=== PATIENT | male | born 1950 | race Caucasian/White ===

== ENCOUNTER 2020-10-14 17:10 | Emergency (ER) | payer MEDICARE, SELFPAY ==
[2020-10-14 17:44] VITALS: BP 148/72; PULSE 98; RESP 17; TEMP 36.7; O2SAT 96; BMI 41.5
[2020-10-14] MEDS: Tetracaine HCl/PF 0.5% Oph Sol 4 ML DROPS 3 DROP EYE-RIGHT (18:01)
[2020-10-14] MEDS: Fluorescein Sodium STRIP 1 STRIP EYE-RIGHT (18:02)
[2020-10-14] MEDS: Erythromycin Base 0.5% Oph Oin 1 GM TUBE 1 CM EYE-LEFT (19:13)
--- NOTE | 2020-10-14 20:12 | ED.EYEPROB ---
HPI - Eye Problem General Chief complaint: Eye Problems Stated complaint: EYE FOREIGN BODY Time Seen by Provider: 10/14/20 17:56 History of Present Illness HPI Narrative: Patient complains of left eye irritation since last night, does not recall any injury, the eye is watering but there is no yellow discharge, the eye is mildly irritated but no significant pain no photophobia no vision change no vision loss no double vision does not recall any foreign body Symptoms are mild and been present for about 20 hours Related Data Home Medications Medication Instructions Recorded Confirmed ascorbate calcium (vitamin C) 500 500 mg PO BID 09/13/20 09/13/20 mg tablet gabapentin 100 mg capsule 100 mg PO TID 09/13/20 09/13/20 ibuprofen 600 mg tablet 600 mg PO TID 09/13/20 09/13/20 tizanidine 4 mg tablet 4 mg PO TID PRN 09/13/20 09/13/20 vitamin E (dl, acetate) 400 unit 400 unit PO .4 times a week cap 09/13/20 09/13/20 capsule Previous Rx's Medication Instructions Recorded back brace #1 ea 09/13/20 hydrochlorothiazide 25 mg tablet 25 mg PO DAILY 90 Days #90 tab 09/13/20 ibuprofen 800 mg tablet 800 mg PO Q8H PRN 30 Days #90 tab 09/13/20 leg brace #1 ea 09/13/20 tramadol 50 mg tablet 50 mg PO Q4H PRN 30 Days #180 tab 09/18/20 erythromycin 0.5 inch OPHTHALMIC (EYE) TID 3 10/14/20 Days #1 g erythromycin 0.5 inch OPHTHALMIC (EYE) TID 3 10/14/20 Days #1 g Allergies Allergy/AdvReac Type Severity Reaction Status Date / Time Sulfa (Sulfonamide Allergy Severe UNKNOWN, Verified 09/13/20 17:56 Antibiotics) rash [SULFA (SULFONAMIDE ANTIBIOTICS)] naproxen Allergy Unknown stomach Verified 09/13/20 17:56 upset, rash Review of Systems Review of Systems: No fever no chills no headache no dizziness no double vision no photophobia no yellow discharge no foreign body sensation no rash, no contact lenses Does not recall any injury PMFSH Past Medical History Source: nursing notes reviewed Medical History Essential hypertension Lymphedema Obesities, morbid Right elbow pain Right knee pain Surgical History (Updated 09/13/20 @ 10:03 by GADIEL Sotelo) History of arthroscopy of right knee History of cervical discectomy Family History Family History (Updated 09/13/20 @ 10:04 by GADIEL Sotelo) Father Parkinson disease Mother Cancer Sister Breast cancer Brother Prostate cancer Social History Social History Smoking Status: Former smoker Use of substances other than those prescribed or required for medical reasons: No Advance Directives: No Advance Directives Information Provided: Yes Physical Exam Vital Signs: Vital Signs: Last Vital Signs Temp 98.1 F 10/14/20 17:44 Pulse 98 10/14/20 17:44 Resp 17 10/14/20 17:44 BP 148/72 H 10/14/20 17:44 Pulse Ox 96 10/14/20 17:44 Body Mass Index 41.5 Patient is A&O x3 comfortable no acute distress relaxed and cooperative Right eye is normal in appearance Left eye is tearing and with mild conjunctival redness, there is no obvious foreign body when the lid is flipped up With staining there is a horizontal corneal abrasion small with dye uptake, pupils equal round react to light, extraocular motions fully intact There is no redness around the orbit Pharynx is normal in appearance well hydrated Neck is supple Respiratory no respiratory distress Skin no rashes Course Course Course Narrative: Tetracaine was instilled in left eye with full relief of symptoms Fluorescein dye was applied and revealed a horizontal small corneal abrasion Patient was treated with erythromycin ointment and discharged Discharge Plan Discharge Clinical Impression: Corneal abrasion Qualifiers: Encounter type: initial encounter Laterality: left Qualified Code(s): S05.02XA - Injury of conjunctiva and corneal abrasion without foreign body, left eye, initial encounter Patient Disposition: Home, Self-Care Additional Instructions: There is a small scratch in your cornea usually these things get better on their own in 2-3 days Return to ER any time for worsening eye pain, vision change or vision loss discharge from the eye, any worse condition or any concern If not better by Sunday follow with eye doctor for recheck Prescriptions: New erythromycin 5 mg/gram (0.5 %) ointment 0.5 inch ophthalmic (eye) TID 3 Days Qty: 1 RF: 0 erythromycin 5 mg/gram (0.5 %) ointment 0.5 inch ophthalmic (eye) TID 3 Days Qty: 1 RF: 0 No Action tramadol 50 mg tablet 50 mg PO Q4H PRN (Reason: pain) 30 Days Qty: 180 RF: 0 ibuprofen 600 mg tablet 600 mg PO TID RF: 0 gabapentin 100 mg capsule 100 mg PO TID RF: 0 tizanidine [Zanaflex] 4 mg tablet 4 mg PO TID PRNRF: 0 ascorbate calcium (vitamin C) 500 mg tablet 500 mg PO BID RF: 0 vitamin E (dl, acetate) 400 unit capsule 400 unit PO .4 times a week RF: 0 ibuprofen 800 mg tablet 800 mg PO Q8H PRN (Reason: pain) 30 Days Qty: 90 RF: 6 hydrochlorothiazide 25 mg tablet 25 mg PO DAILY 90 Days Qty: 90 RF: 3 (DME) Knee Brace Large-XLarge Misc See Rx Instructions .ROUTE .MEDSUPPLY Qty: 1 RF: 0 (DME) back brace Misc See Rx Instructions .ROUTE .MEDSUPPLY Qty: 1 RF: 0 Referrals: Stoney Gerardo [Physician] - 2 days (Left eye corneal abrasion) Interventions: ED Discharge Assessment Last Done: 10/14/20 19:23 Discharge Date/Time: 10/14/20 19:23
== END 2020-10-14 19:23 | disposition home or self-care (01) ==
PROVIDERS: Emergency Provider Emergency Medicine; PCP Internal Medicine
DX: S05.02XA Injury of conjunctiva and corneal abrasion without foreign body, left eye, initial encounter (principal); H57.12 Ocular pain, left eye; X58.XXXA Exposure to other specified factors, initial encounter; Y93.9 Activity, unspecified; Y92.9 Unspecified place or not applicable; Z79.899 Other long term (current) drug therapy; Y99.9 Unspecified external cause status; Z87.891 Personal history of nicotine dependence
CPT/HCPCS: 99283

== ENCOUNTER → 2021-06-06 14:01 | Outpatient (BNVA) | payer MEDICARE, SELFPAY | PROVIDERS: PCP Internal Medicine; Visit Provider Physician Assistant | DX: Z12.11 Encounter for screening for malignant neoplasm of colon (principal); K64.8 Other hemorrhoids; K57.90 Diverticulosis of intestine, part unspecified, without perforation or abscess without bleeding; G47.33 Obstructive sleep apnea (adult) (pediatric) | CPT/HCPCS: 99202 ==

== ENCOUNTER 2021-06-15 17:54 | Outpatient (REF) | payer MEDICARE, SELFPAY ==
--- NOTE | ~2021-06-15 | XR_ITS ---
EXAMINATION: XR CHEST CLINICAL INFORMATION: Bronchitis COMPARISON: None TECHNIQUE: 2 views of the chest were obtained. FINDINGS: No significant abnormality is noted involving the heart, lungs, mediastinum, bony thorax or soft tissues. Linear scar seen within the lingula. Old healed left rib fractures evident. XR/XR chest 2V IMPRESSION: No acute disease.
== END 2021-06-15 17:55 | disposition home or self-care (01) ==
LOC: HO.XRAY 17:54
PROVIDERS: PCP Internal Medicine; Visit Provider Internal Medicine
DX: J40 Bronchitis, not specified as acute or chronic (principal)
CPT/HCPCS: 71046

== ENCOUNTER 2021-06-20 15:34 | Outpatient (REF) | payer MEDICARE, SELFPAY | END 2021-06-20 15:35 | disposition home or self-care (01) | LOC: HO.LAB 15:34 | PROVIDERS: Internal Medicine; Visit Provider Internal Medicine | DX: Z20.822 Contact with and (suspected) exposure to COVID-19 (principal) | CPT/HCPCS: C9803; U0003; U0005 ==

== ENCOUNTER → 2022-03-21 07:57 | Outpatient (RCR) | payer MEDICARE, SELFPAY | END | disposition home or self-care (01) | LOC: HO.OT 09-09 14:11 | PROVIDERS: Visit Provider Surgery Vascular Surgery | DX: I89.0 Lymphedema, not elsewhere classified (principal) | CPT/HCPCS: 97166 ==

== ENCOUNTER → 2022-06-13 14:51 | Outpatient (BNVA) | payer MEDICARE, SELFPAY | PROVIDERS: PCP Internal Medicine; Visit Provider Surgery Vascular Surgery | DX: I83.11 Varicose veins of right lower extremity with inflammation (principal); I89.0 Lymphedema, not elsewhere classified | CPT/HCPCS: 99202 ==

== ENCOUNTER 2022-07-13 13:02 | Outpatient (REF) | payer MEDICARE, SELFPAY ==
[2022-07-13 13:46] LABS: Basophils Percent Auto 0.5 % (0-2); Eosinophils Absolute Auto 0.1 X10*3/uL (0.0-0.4); Eosinophils Percent Auto 1.6 % (0-4); Hematocrit 38.6 % (42.0-52.0); Imm Gran Abs Auto 0.03 X10*3/uL (0.00-0.03); Imm Gran Pct Auto 0.4 % (0.0-0.4); Lymphocytes Percent Auto 26.2 % (20-40); MANUAL DIFF FLAG NO; Mean Corpuscular HGB Conc 33.7 g/dl (31.0-36.0); Mean Corpuscular Volume 86.2 fL (80.0-98.0); Mean Platelet Volume 9.6 fL (9.4-12.4); Monocytes Absolute Auto 0.7 X10*3/uL (0.1-1.2); Monocytes Percent Auto 8.7 % (2-11); Neutrophils Absolute Auto 4.8 x10*3/uL (2.0-8.3); Neutrophils Percent Auto 62.6 % (45-73); Platelet Count 223 X10*3/uL (160-400); Red Blood Count 4.48 X10*6/uL (4.60-5.80); Red Cell Distribution Width 12.4 % (11.0-16.0); White Blood Count 7.7 X10*3/uL (4.8-10.8)
[2022-07-13 14:18] LABS: Alanine Aminotransferase 19 U/L (0-40); Alkaline Phosphatase 71 U/L (39-117); Anion Gap 14 (12-20); Aspartate Amino Transferase 21 U/L (5-37); Bilirubin Total 0.5 mg/dL (0.0-1.0); Blood Urea Nitrogen 13 mg/dL (9-16); Calcium 9.1 mg/dL (8.4-10.2); Carbon Dioxide 28 mmol/L (22-29); Chloride 102 mmol/L (96-108); Cholesterol 191 mg/dL; Estimated Glomerular Filt Rate > 60; Glucose Fasting 129 mg/dL (60-99); HDL Cholesterol 45 mg/dL; LDL Cholesterol Calculated 110 mg/dl; Potassium 3.9 mmol/L (3.3-5.1); Sodium 140 mmol/L (135-145); Total Protein 6.9 g/dL (6.5-8.0); Triglycerides 182 mg/dL
[2022-07-13 14:42] LABS: Free T4 (Free Thyroxine) 1.03 ng/dL (0.71-1.85); Thyroid Stimulating Hormone 1.71 uIU/mL (0.32-4.0); Vitamin D 25-OH Total 59.1 ng/mL (>30)
[2022-07-13 14:55] LABS: Folate 17.7 ng/mL (> or = 4.0); Vitamin B12 458 pg/mL (200-900)
[2022-07-14 20:07] LABS: Triiodothyronine T3 Free 3.2 pg/mL (2.3-4.2)
[2022-07-17 22:41] LABS: Zinc 72 mcg/dL (60-130)
[2022-07-18 09:52] LABS: Triiodothyronine T3 Reverse 19 ng/dL (8-25)
[2022-07-18 19:17] LABS: Magnesium, RBC 5.8 mg/dL (4.0-6.4)
[2022-07-19 18:02] LABS: Copper RBC 0.67 mg/L (0.53-0.91)
== END 2022-07-13 13:03 | disposition home or self-care (01) ==
LOC: HO.10HDL 13:02
PROVIDERS: Visit Provider Internal Medicine
DX: E66.01 Morbid (severe) obesity due to excess calories (principal); E78.5 Hyperlipidemia, unspecified; R73.02 Impaired glucose tolerance (oral); E55.9 Vitamin D deficiency, unspecified; D64.9 Anemia, unspecified; Z68.37 Body mass index [BMI] 37.0-37.9, adult
CPT/HCPCS: 36415; 80053; 80061; 82306; 82525; 82607; 82746; 83735; 84439; 84443; 84481; 84482; 84630; 85025

== ENCOUNTER 2022-08-21 13:22 | Outpatient (REF) | payer MEDICARE, SELFPAY ==
--- NOTE | ~2022-08-21 | US_ITS ---
EXAMINATION: US LOWER EXTREMITY VENOUS (REFLUX EXAM), BILATERAL CLINICAL INDICATION: Varicose veins COMPARISON: None. TECHNIQUE: Color flow triplex imaging and compression Doppler was performed to evaluate both the deep and the superficial systems bilaterally. To evaluate the superficial system, the examination was performed in the upright position. Color-flow Doppler ultrasound and compression ultrasound were utilized. In addition, maneuvers were utilized to demonstrate reflux. FINDINGS: 1. DEEP VENOUS ULTRASOUND OF THE RIGHT LOWER EXTREMITY: Common Femoral Vein: Compressible, normal respiratory variation and augmented flow. Femoral Vein: Compressible, normal color flow and augmentation. Popliteal Vein: Compressible, normal augmentation. Deep Reflux: There is no evidence of reflux in the deep system in either the common femoral vein or the popliteal vein. There is no evidence of a Contreras's cyst. 2. SUPERFICIAL ULTRASOUND WITH DOPPLER OF RIGHT LOWER EXTREMITY: GREAT SAPHENOUS VEIN: Saphenofemoral Junction: 0.6 cm; Reflux: 0 ms Proximal Thigh: 0.4 cm; Reflux: 0 ms Mid Thigh: 0.15 cm; Reflux: 0 ms Above Knee: Not visualized At Knee: Not visualized Below Knee: 0.1 cm; Reflux: 0 ms Mid Calf: 0.18 cm; Reflux: 0 ms Ankle: 0.36 cm; Reflux: 0 ms DUPLICATED MEDIAL GREAT SAPHENOUS VEIN: Diameter: None Imaged Reflux: NA DUPLICATED LATERAL GREAT SAPHENOUS VEIN: Diameter: None Imaged Reflux: NA SMALL SAPHENOUS VEIN: Proximal: 0.2 cm; Reflux: 0 ms Mid: .23cm; Reflux: 0ms Distal: 0.3 cm; Reflux: 0 ms VEIN OF GIACOMINI: None Imaged. PERFORATORS: Location: [place] Size: 0.46 cm Reflux: NA VARICOSITIES: Location: Proximal thigh Size: 0.34 cm Reflux: NA 3. DEEP VENOUS ULTRASOUND OF THE LEFT LOWER EXTREMITY: Common Femoral Vein: Compressible, normal respiratory variation and augmented flow. Femoral Vein: Compressible, normal color flow and augmentation. Popliteal Vein: Compressible, normal augmentation. Deep Reflux: There is no evidence of reflux in the deep system in either the common femoral vein or the popliteal vein. There is no evidence of a Contreras's cyst. 4. SUPERFICIAL ULTRASOUND WITH DOPPLER OF LEFT LOWER EXTREMITY: GREAT SAPHENOUS VEIN: Saphenofemoral Junction: 1.1 cm; Reflux: 0 ms Proximal Thigh: 0.44 cm; Reflux: 0 ms Mid Thigh: 0.44 cm; Reflux: 0 ms Above Knee: 0.45 cm; Reflux: 0 ms At Knee: 0.47 cm; Reflux: 0 ms Below Knee: 0.26 cm; Reflux: 0 ms Mid Calf: 0.15 cm; Reflux: 0 ms Ankle: 0.30 cm; Reflux: 0 ms DUPLICATED MEDIAL GREAT SAPHENOUS VEIN: Diameter: None Imaged Reflux: NA DUPLICATED LATERAL GREAT SAPHENOUS VEIN: Diameter: None Imaged Reflux: NA SMALL SAPHENOUS VEIN: Proximal: 0.22 cm; Reflux: 0 ms Mid: .23cm; Reflux: 2020ms Distal: 0.17 cm; Reflux: 0 ms VEIN OF GIACOMINI: None Imaged. PERFORATORS: Location: Proximal calf Size: 0.45 cm Reflux: 972 ms VARICOSITIES: Location: Proximal thigh Size: 0.4 cm (x2) Reflux: NA US/US venous duplex LE BI IMPRESSION: Right: No reflux within the greater saphenous vein, though it is not visualized. The knee. Small mid calf and proximal thigh barrel rifler broach and varicose vein. Left: Reflux within the great saphenous vein at the ankle and small saphenous vein at the mid calf. Reflux within a proximal calf barrel rifler broach.
== END 2022-08-21 13:23 | disposition home or self-care (01) ==
LOC: HO.US 13:22
PROVIDERS: Visit Provider Surgery Vascular Surgery
DX: I83.11 Varicose veins of right lower extremity with inflammation (principal)
CPT/HCPCS: 93970

== ENCOUNTER → 2024-04-15 14:55 | Outpatient (RCR) | payer MEDICARE, SELFPAY | END | disposition home or self-care (01) | LOC: HO.OT 10-25 15:08 | PROVIDERS: PCP Internal Medicine; Visit Provider Internal Medicine | DX: M25.521 Pain in right elbow (principal) | CPT/HCPCS: 97140; 97165 ==